=== PATIENT | female | born 1990 | race African-American/Black ===

== ENCOUNTER 2018-11-04 16:20 | Emergency (ER) | payer MEDICAID ==
[~2018-11-04] VITALS: Ht 170.2 cm; Wt 63.0 kg
[2018-11-04] MEDS ORDERED: ACETAMINOPHEN WITH CODEINE 300/30MG TABLET PO ONE (19:30)
[2018-11-04] MEDS ORDERED: DOXYCYCLINE HYCLATE 100MG CAPSULE PO ONE (19:30)
[2018-11-04 19:53] VITALS: BP 108/73
[2018-11-04] MEDS ORDERED: HYDROCORTISONE 1% OINT 28.35GM TOP SCH (22:00)
== END 2018-11-04 20:11 | disposition home or self-care (01) ==
LOC: EDBD 16:20 → ER 16:32
DX: S80.862A Insect bite (nonvenomous), left lower leg, initial encounter (principal); S80.861A Insect bite (nonvenomous), right lower leg, initial encounter; W57.XXXA Bitten or stung by nonvenomous insect and other nonvenomous arthropods, initial encounter; Y93.9 Activity, unspecified; Y92.9 Unspecified place or not applicable
CPT/HCPCS: 99284